=== PATIENT | female | born 1975 | race Caucasian/White ===

== ENCOUNTER 2019-09-30 11:57 | Outpatient (CLI) | payer OTHER, SELFPAY ==
--- NOTE | ~2019-09-30 | MMUS_ITS ---
EXAMINATION: MM diagnostic mammo BI, US breast BI limited HISTORY: Bilateral breast asymmetries have grouped left breast calcifications on screening mammogram TECHNIQUE: Additional 3-D tomosynthesis images of the breasts were performed and synthetic 2-D images were generated. Magnification views of the left breast are also obtained. CAD analysis was submitted and interpreted. High resolution limited bilateral breast ultrasound was performed. COMPARISON: 09/04/2019 FINDINGS: MAMMOGRAPHIC FINDINGS: Right breast: There is mild focal asymmetry in the middle third of the upper outer quadrant of the br east without associated mass, calcification, or architectural distortion. Left breast: Mild asymmetry persists in the posterior third of the outer breast. An asymmetry is also seen in the posterior third of the upper inner breast approximately 10 cm from the nipple with assoc iated calcifications which appear to be punctate and round in morphology. ULTRASOUND: Right breast: There is no suspicious sonographic finding in the area of the right breast asymmetry. Left breast: There is a 4 mm cyst at the 11:00 location 3 cm from the nipple. No suspicious cystic or solid mass is identified. IMPRESSION: 1. Asymmetry of the upper inner left breast with probably benign calcifications. 2. Recommend 6 month follow-up left diagnostic mammogram and possible ultrasound. BI-RADS category 3, probably benign findings. Reviewed, dictated and finalized at location A. 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 Asymmetry of the upper inner left breast with probably benign calcifications . 2. Recommend 6 month follow-up left diagnostic mammogram and possible ultrasoun d. BI-RADS category 3, probably benign findings.
== END 2019-09-30 11:58 | disposition home or self-care (01) ==
LOC: ANHIMG 11:59
DX: R92.2 Inconclusive mammogram (principal)
CPT/HCPCS: 76642; 77066

== ENCOUNTER → 2020-09-11 10:56 | Outpatient (CLI) | payer OTHER, SELFPAY ==
--- NOTE | ~2020-09-11 | US_ITS ---
EXAMINATION: US thyroid DATE: 09/11/2020 11:21 INDICATION: Goiter. TECHNIQUE: Multiple ultrasound images of the thyroid were obtained. COMPARISON: None. FINDINGS: The right thyroid lobe measures 4.9 x 2.0 x 1.6 cm. The left thyroid lobe measures 4.6 x 1.7 x 1.7 c m. The thyroid is diffusely heterogeneous and hypoechoic with increased vascularity. No discrete nod ule. IMPRESSION: 1. Heterogeneous, hypervascular thyroid, consistent with chronic lymphocytic (Don) thyroiditis. Reviewed, dictated and finalized at location A. DER TIER IMPRESSION: 1. Heterogeneous, hypervascular thyroid, consistent with chronic lymphocytic (H ashimoto) thyroiditis.
== END ==
PROVIDERS: Visit Provider Nurse Practitioner Family
DX: E04.9 Nontoxic goiter, unspecified (principal)
CPT/HCPCS: 76536

== ENCOUNTER → 2020-09-11 11:00 | Outpatient (CLI) | payer OTHER, SELFPAY ==
--- NOTE | ~2020-09-11 | XR_ITS ---
EXAMINATION: XR hand LT min 3V DATE: 09/11/2020 12:13 INDICATION: Painful hard bump at the distal left third finger. TECHNIQUE: Posteroanterior, oblique and lateral views of the left hand were obtained. COMPARISON: None. FINDINGS: Alignment is normal. No fracture. Joint spaces are normal. Soft tissues are unremarkable. No masses i dentified. No radiopaque foreign bodies or calcified matrix. IMPRESSION: 1. Negative left hand radiographs. Reviewed, dictated and finalized at location B. R TESTING SUPERVISOR
== END ==
PROVIDERS: Visit Provider Nurse Practitioner
DX: R22.9 Localized swelling, mass and lump, unspecified (principal)
CPT/HCPCS: 73130

== ENCOUNTER 2020-12-28 22:24 | Emergency (ER) | payer OTHER, SELFPAY ==
--- NOTE | ~2020-12-28 | XR_ITS ---
EXAMINATION: XR chest 2V DATE: 12/28/2020 23:03 INDICATION: Chest pain TECHNIQUE: PA and lateral views of the chest are obtained. COMPARISON: 09/06/2017 FINDINGS: The lungs are free of acute opacities. There is no pleural effusion or pneumothorax. The ca rdiomediastinal silhouette is normal. There is mild thoracic spondylosis. IMPRESSION: 1. No acute cardiopulmonary abnormality. Reviewed, dictated and finalized at location A.
[2020-12-28 22:34] VITALS: BP 133/71; PULSE 81; RESP 18; TEMP 36.2; O2SAT 100
--- NOTE | 2020-12-28 22:40 | ECG_ITS ---
Measurements Intervals [place] Rate: 61 P: 60 WV: 131 QRS: 52 QRSD: 88 T: 48 QT: 418 QTc: 423 Interpretive Statements SINUS RHYTHM NORMAL ECG Electronically Signed On 12-29-2020 6:37:41 CDT by Eamon Fulton D.O.
[2020-12-28 23:07] LABS: Basophils Absolute Auto 0.1 K/mm3 (0.0-0.1); Basophils Percent Auto 0.6 % (0.2-1.2); Eosinophils Absolute Auto 0.1 K/mm3 (0-0.3); Eosinophils Percent Auto 1.4 % (0-4.4); Hematocrit 42.4 % (37.0-47.0); Hemoglobin 13.9 g/dL (12.0-15.0); Immature Granulocyte Absolute 0.02 K/mm3 (0.00-0.031); Immature Granulocyte Percent A 0.2 % (0-0.5); Lymphocytes Absolute Auto 3.06 K/mm3 (0.9-3.2); Lymphocytes Percent Auto 34.6 % (18.3-44.2); Mean Corpuscular HGB Conc 32.8 g/dl (32-36); Mean Corpuscular Hemoglobin 30.2 pg (26-34); Mean Corpuscular Volume 92.2 fl (80-100); Mean Platelet Volume 10.9 fl (7.4-10.4); Monocytes Absolute Auto 0.7 K/mm3 (0.1-0.6); Monocytes Percent Auto 7.7 % (2.6-8.5); Neutrophils Absolute Auto 4.9 K/mm3 (1.3-6.7); Neutrophils Percent Auto 55.5 % (45.5-73.1); Platelet Count Result 250 k/mm3 (150-375); Red Cell Distribution Width 12.6 % (11.5-14.5); White Blood Count 8.9 K/mm3 (4.5-10.0)
[2020-12-28 23:17] LABS: INR 0.9; Partial Thromboplastin Time 23.3 SECONDS (22.3-36.8); Prothrombin Time 12.8 Seconds (11.1-14.7)
[2020-12-28 23:20] LABS: Anion Gap 6 mmol/L (8-16); Blood Urea Nitrogen 22 mg/dL (7-17); Calcium 9.7 mg/dL (8.4-10.2); Carbon Dioxide 29 mmol/L (22-30); Chloride 104 mmol/L (98-107); Estimated CRCL calculation 85 ml/min; Estimated Glomerular Filt Rate > 60; Glucose 102 mg/dL (65-105); Potassium 3.8 mmol/L (3.4-5.0); Sodium 139 mmol/L (137-145)
[2020-12-28 23:32] LABS: Troponin I < 0.012 ng/mL (0.000-0.034)
[2020-12-28 23:57] VITALS: BP 141/66; PULSE 54; RESP 18; O2SAT 97
[2020-12-29] MEDS: ASPIRIN 81 MG CHEWABLE TABLET 324 MG PO (00:05)
--- NOTE | 2020-12-29 02:29 | ED.GENADULT ---
HPI - General Adult General Chief complaint: Chest Pain Stated complaint: palpitations, tingly face Time Seen by Provider: 12/29/20 00:15 History of Present Illness HPI narrative: Patient is a 45-year-old female who presents emerged from with chief complaint palpitations and chest discomfort. The patient states she been having this for some time is [employer] and is supposed to see cardiology later this week. Patient states tonight she felt as though her heart was beating funny and decided to come to the emergency department for evaluation. Patient reports she does have history of hypothyroidism and is currently on Synthroid. Patient reports that she has intermittent episodes of chest discomfort that lasts for a few seconds. Related Data Home Medications Medication Instructions Recorded Confirmed fluticasone furoate 50 INHALATION 08/27/20 12/15/20 mcg/actuation blister powder for inhalation levocetirizine 5 mg tablet 5 mg PO DAILY 08/27/20 12/15/20 levothyroxine 50 mcg capsule 50 mcg PO DAILY 08/27/20 12/15/20 montelukast 10 mg tablet 10 mg PO DAILY 08/27/20 12/15/20 Allergies Allergy/AdvReac Type Severity Reaction Status Date / Time penicillin G Allergy Unknown Rash Verified 12/15/20 10:57 Penicillins Allergy Unknown RASH Verified 12/15/20 10:57 Sulfa (Sulfonamide Allergy Unknown Rash Verified 12/15/20 10:57 Antibiotics) Review of Systems Review of Systems: Narrative: A 10 system review of systems was completed on the patient and is negative except for what is stated in the HPI. Nursing and ancillary documentation was reviewed. [facility] Past Medical History Medical History Mucoid cyst of joint Seasonal allergic rhinitis Thyroid disease Social History Social History Smoking status: Former smoker Alcohol intake: current Exam Narrative: Exam Narrative: GENERAL: Well-appearing, well-nourished, and in no acute distress. HEAD: Normocephalic, atraumatic. EYES: PERRLA and EOMI. ENT: Nares clear, no rhinorrhea or epistaxis. Mucous membranes moist. NECK: Supple. CHEST: Clear to auscultation. No respiratory distress. HEART: Regular rate and rhythm. No murmur heard. Normal peripheral pulses. ABDOMEN: Soft, nontender, nondistended, normal active bowel sounds. EXTREMITIES: Normal range of motion. No edema. SKIN: Warm, dry, no rash. NEURO: No focal deficits. Alert and oriented x3. PSYCH: Normal mood and affect. Course Vital Signs Vital signs: Vital Signs Temperature 36.2 C L 12/28/20 22:34 Pulse Rate 81 12/28/20 22:34 Respiratory Rate 18 12/28/20 22:34 Blood Pressure 133/71 12/28/20 22:34 Pulse Oximetry 100 12/28/20 22:34 Temperature 36.2 C L 12/28/20 22:34 Pulse Rate 54 L 12/28/20 23:57 Respiratory Rate 18 12/28/20 23:57 Blood Pressure 141/66 H 12/28/20 23:57 Pulse Oximetry 97 12/28/20 23:57 Medical Decision Making Vital Signs Vital Signs: Vital Signs Temperature 36.2 C L 12/28/20 22:34 Pulse Rate 81 12/28/20 22:34 Respiratory Rate 18 12/28/20 22:34 Blood Pressure 133/71 12/28/20 22:34 Pulse Oximetry 100 12/28/20 22:34 Temperature 36.2 C L 12/28/20 22:34 Pulse Rate 54 L 12/28/20 23:57 Respiratory Rate 18 12/28/20 23:57 Blood Pressure 141/66 H 12/28/20 23:57 Pulse Oximetry 97 12/28/20 23:57 Lab Data Result diagrams: 12/28/20 22:55 12/28/20 22:55 Labs: Lab Results 12/28/20 12/28/20 12/28/20 Range/Units 22:55 22:55 22:55 WBC 8.9 (4.5-10.0) K/mm3 RBC 4.60 (4.2-5.4) M/mm3 Hgb 13.9 (12.0-15.0) g/dL Hct 42.4 (37.0-47.0) % MCV 92.2 (80-100) fl MCH 30.2 (26-34) pg MCHC 32.8 (32-36) g/dl RDW 12.6 (11.5-14.5) % Plt Count 250 (150-375) k/mm3 MPV 10.9 H (7.4-10.4) fl Immature Gran % (Auto) 0.2 (0-0.5)
[2020-12-29 03:01] LABS: Troponin I < 0.012 ng/mL (0.000-0.034)
[2020-12-29 03:27] VITALS: BP 135/67; PULSE 70; RESP 18; O2SAT 98
== END 2020-12-29 03:28 | disposition home or self-care (01) ==
PROVIDERS: Emergency Provider Emergency Medicine; PCP Family Medicine
DX: R00.2 Palpitations (principal); R07.89 Other chest pain; Z87.891 Personal history of nicotine dependence; E03.9 Hypothyroidism, unspecified
CPT/HCPCS: 36415; 71046; 80048; 84484; 85025; 85610; 85730; 93005; 99284; A9270

== ENCOUNTER → 2021-01-25 02:03 | Outpatient (CLI) | payer OTHER, SELFPAY ==
[2021-01-25 17:43] LABS: SARS-CoV-2 RNA PCR Negative
== END ==
PROVIDERS: Visit Provider Orthopaedic Surgery
DX: Z01.812 Encounter for preprocedural laboratory examination (principal); Z20.822 Contact with and (suspected) exposure to COVID-19
CPT/HCPCS: C9803; U0003; U0005

== ENCOUNTER 2021-01-28 00:19 | Day surgery (SDC) | payer OTHER, SELFPAY ==
[2021-01-25 09:47] VITALS: BMI 31.1
--- NOTE | 2021-01-27 10:03 | WPDANESEPPF ---
Anes - Initial Pre Proc Eval Procedure: Operation Date: 01/28/21 07:30 Proposed Procedures p Excision Left Middle Finger Ganglion Cyst - Bobby Bradley MD Date/Time: 01/27/21 10:03 Surgeon: Bobby Bradley MD Pre Op Diagnosis: left middle finger ganglion cyst Patient Data Age: 45 Gender: F Height: 1.65 m Weight: 84.82 kg Allergies Allergy/AdvReac Type Severity Reaction Status Date / Time penicillin G Allergy Unknown Rash Verified 01/25/21 13:07 Penicillins Allergy Unknown RASH Verified 01/25/21 13:07 Sulfa (Sulfonamide Allergy Unknown Rash Verified 01/25/21 13:07 Antibiotics) levothyroxine sodium AdvReac Palpitation Verified 01/25/21 13:07 [From Synthroid] s Home Medications Medication Instructions Recorded Confirmed Type levocetirizine 5 mg tablet 5 mg PO DAILY 08/27/20 01/25/21 History montelukast 10 mg tablet 10 mg PO DAILY 08/27/20 01/25/21 History cholecalciferol (vitamin D3) 125 mcg PO 2XW 01/25/21 01/25/21 History [Vitamin D3] fluticasone propionate [Flonase 2 spray INTRANASAL DAILY 01/25/21 01/25/21 History Allergy Relief] multivitamin 1 tablet PO DAILY 01/25/21 01/25/21 History Patient hx anesthesia problems: none Family hx anesthesia problems: none [facility] Past Medical History Medical History (Updated 01/27/21 @ 16:53 by Bobby Bradley MD) Digital mucous cyst of finger of left hand DVT (deep venous thrombosis) Mucoid cyst of joint Obesity Seasonal allergic rhinitis Thyroid disease Social History Social History Smoking packs per day: 1 Smoking cigarettes per day: 20.0 Years smoked: 10 Smoking pack-years: 10.00 Smoking status: Former smoker Smoking end date: 08/14/04 Alcohol intake: current Substance use: never Substance use type: does not use Living arrangements: with family Spiritual care concerns: No Anes - Eval Final PreProcedure Day of Procedure 01/27/21 10:03 Patient weight: obese Heart: regular rate and rhythm Lungs: clear to auscultation and normal air movement Airway: Mallampati scale class II Neurological: alert and oriented Last oral intake: >/= 8 hours ASA classification: II Emergent: no Anesthetic plan: proceed Anesthesia type and monitoring: general GIVS and LMA Informed Consent: The patient's anesthetic plan and its attendant risks and benefits were discussed with the patient/family/POA. Questions were solicited and answers provided to the satisfaction of the patient/family/POA.
--- NOTE | 2021-01-27 16:49 | PM.IMHP ---
H&P: HPI History of Present Illness Date/Time: 01/27/21 16:49 Chief Complaint: Left hand middle finger cyst Narrative: 45-year-old woman with left hand middle finger cyst unrelieved with conservative measures. Causes pain and problems with gripping. Presents for operative treatment. Review of Systems Constitutional: Constitutional: Denies fever(s) Eyes: Eyes: Denies blurry vision ENT: Reports Normal hearing present Cardiovascular: Cardiovascular: Denies chest pain and Denies dyspnea Respiratory: Respiratory: Denies dyspnea and Denies wheezing Gastrointestinal: Gastrointestinal: Denies abdominal pain Genitourinary: Genitourinary: Denies urinary urgency Musculoskeletal: Musculoskeletal: Reports as per HPI and Denies numbness Integumentary/Breasts: Skin/Breast: Denies changing lesions and Denies sores Neurologic: Reports Normal hearing present, Denies behavioral changes, Denies confusion, Denies numbness and Denies convulsions Psychiatric: Psychiatric: Denies behavioral changes, Denies confusion and Denies hallucinations Endocrine: Endocrine: Denies heat intolerance Hematologic/Lymphatic: Hematologic/Lymphatic: Denies easy bleeding Allergic/Immunologic: Allergic/Immunologic: Denies wheezing PMFSH Past Medical History Medical History (Updated 01/27/21 @ 16:53 by Bobby Bradley MD) Digital mucous cyst of finger of left hand DVT (deep venous thrombosis) Mucoid cyst of joint Obesity Seasonal allergic rhinitis Thyroid disease Social History Social History Smoking packs per day: 1 Smoking cigarettes per day: 20.0 Years smoked: 10 Smoking pack-years: 10.00 Smoking status: Former smoker Smoking end date: 08/14/04 Alcohol intake: never Substance use: never Substance use type: does not use Spiritual care concerns: No Meds Home Medications and Allergies Home Medications Medication Instructions Recorded Confirmed Type levocetirizine 5 mg tablet 5 mg PO DAILY 08/27/20 01/25/21 History montelukast 10 mg tablet 10 mg PO DAILY 08/27/20 01/25/21 History cholecalciferol (vitamin D3) 125 mcg PO 2XW 01/25/21 01/25/21 History [Vitamin D3] fluticasone propionate [Flonase 2 spray INTRANASAL DAILY 01/25/21 01/25/21 History Allergy Relief] multivitamin 1 tablet PO DAILY 01/25/21 01/25/21 History Allergies Allergy/AdvReac Type Severity Reaction Status Date / Time penicillin G Allergy Unknown Rash Verified 01/25/21 13:07 Penicillins Allergy Unknown RASH Verified 01/25/21 13:07 Sulfa (Sulfonamide Allergy Unknown Rash Verified 01/25/21 13:07 Antibiotics) levothyroxine sodium AdvReac Palpitation Verified 01/25/21 13:07 [From Synthroid] s Exam Const: General: healthy appearing; No in distress or confusion Orientation/consciousness: oriented to person, oriented to place, oriented to time and No confusion HENMT: Head: normal to inspection, normocephalic and atraumatic Eyes: Conjunctivae: conjunctivae normal Sclera: sclerae normal Neck: Neck: supple and nontender Resp: Effort & Inspection: normal respiratory effort and no audible wheezes Cardio: Rate: regular rate Rhythm: regular rhythm Skin: General skin exam: no rashes or lesions noted Neuro: General: oriented to person, oriented to place, oriented to time and No confusion Extrem: Right upper extremity: normal to inspection Left upper extremity: shoulder/upper arm no tenderness and no swelling, elbow/forearm no tenderness and no swelling, wrist tenderness ( First dorsal compartment) of the distal radius, swelling of the dorsal wrist (moderate), abnormal ROM (decreased secondary to injury) pain with active ROM with extension and with flexion and pain with passive ROM in extension and in flexion and radial pulse present 2+ and hand normal capillary refill, neuromotor exam normal, neurosensory exam normal Details: radial nerve sensory function normal, ulnar
[2021-01-28] MEDS: ACETAMINOPHEN 500 MG TABLET 1000 MG PO (06:40)
[2021-01-28] MEDS: LACTATED RINGERS 1,000 ML 30 ML IV CONT (06:48)
[2021-01-28 06:50] VITALS: BP 95/54; PULSE 69; TEMP 36.1; O2SAT 100
[2021-01-28] MEDS: KETOROLAC 15 MG/ML VIAL (*BKC) IV PUSH (06:59)
--- NOTE | 2021-01-28 07:00 | WPDHPUPDATE1 ---
History and Physical Update Update Date/Time: 01/28/21 07:00 History and Physical has been reviewed, including an updated exam of the patient. There are NO changes in the patient's condition. Covid test negative. Risks, benefits, and alternatives have been discussed and questions answered. Patient agrees to proceed with procedure.
[2021-01-28] MEDS: ceFAZolin 2 GM/D5W 50 ML 2 GM/50 ML BAG IVPB (07:20)
[2021-01-28] MEDS: BUPIVACAINE HCL 0.5% PF 30 ML VIAL INFILTRATE (07:47)
--- NOTE | 2021-01-28 08:08 | W.PM.PROC2 ---
Procedure Note - Detailed Date of Procedure 01/28/21 Pre-op Diagnosis left middle finger ganglion cyst Post-op Diagnosis same Procedure Performed Excision mucous cyst left middle finger Surgeon Bobby Bradley MD Anesthesia MAC and local Indications 45-year-old woman with a cyst involving the distal interphalangeal joint of the left middle finger. Unrelieved with conservative measures. Presents now for excision. Description of Procedure What was done: Patient identified in the preoperative holding. Informed consent given. Operative extremity marked. Patient received intravenous antibiotics. Patient brought to the operating room where underwent sedation by anesthesia team. Positioned supine on operating room table. Time-out performed confirming the patient, site of the surgery and the plan. Left hand prepped draped usual sterile surgical fashion using a ChloraPrep skin solution. 0.5% Marcaine plain used for local anesthetic at the middle finger base. Fifteen blade knife used to make a longitudinal incision over the dorsal radial aspect of the middle finger DIP joint. Hemostasis controlled electrocautery. Care taken to isolate the extensor tendon which was retracted. Neurovascular structures were also protected. Care was also taken not to violate the nail fold or germinal matrix. Distal interphalangeal joint was exposed at the dorsal radial aspect. Small bone spur was present. This was removed with a rongeur. The cyst sac was then identified and closed with cautery. Bleeding points were controlled with bipolar cautery. Wound thoroughly irrigated with solution. Soft tissues closed with 4 nylon interrupted suture. Sterile dressing applied. The patient was then woken from anesthesia, extubated and taken to the recovery room in stable condition. All sponge, needle, instrument counts were correct at the end of the case. Implants None Estimated Blood Loss 0 Tourniquet Time 10 Drains No Packing No Pathology none sent Complications None Condition stable Disposition PACU
[2021-01-28 08:10] VITALS: BP 95/48; PULSE 81; RESP 16; O2SAT 95
[2021-01-28 08:40] VITALS: BP 103/60; PULSE 64; RESP 16; O2SAT 96
[2021-01-28 09:00] VITALS: BP 118/72; PULSE 49; RESP 16
== END 2021-01-28 09:11 | disposition home or self-care (01) ==
PROVIDERS: Visit Provider Orthopaedic Surgery
PROC: (CPT 26160; principal; 2021-01-28 07:30)
DX: M67.442 Ganglion, left hand (principal); E66.9 Obesity, unspecified; Z68.31 Body mass index [BMI] 31.0-31.9, adult; Z87.891 Personal history of nicotine dependence
CPT/HCPCS: 26160; A9270; C9803; J0690; J1885; J2250; J2704; J3010; J7120; U0003; U0005

== ENCOUNTER 2021-03-02 08:01 | Outpatient (CLI) | payer OTHER, SELFPAY | END 2021-03-02 08:02 | disposition home or self-care (01) | PROVIDERS: Visit Provider Otolaryngology | DX: H93.19 Tinnitus, unspecified ear (principal) | CPT/HCPCS: 92557; 92567 ==

== ENCOUNTER 2021-10-15 08:32 | Outpatient (CLI) | payer OTHER, SELFPAY ==
--- NOTE | ~2021-10-15 | MM_ITS ---
EXAMINATION: MM screening [facility] BI w [place] HISTORY: Screening mammogram TECHNIQUE: Craniocaudal and mediolateral oblique 3-D tomosynthesis images were obtained and synthetic 2-D images were generated. CAD analysis was submitted and interpreted. COMPARISON: 09/30/2019, 09/04/2019 BREAST PARENCHYMAL COMPOSITION: The breasts are heterogeneously dense, which may obscure small masses . FINDINGS: There is an asymmetry in the posterior third of the upper outer left breast with associated punctate calcifications. No suspicious interval change is identified in the greater than two year in terval since the diagnostic examination. There is no evidence of suspicious mass, calcification, or a rchitectural distortion to suggest malignancy in either breast. IMPRESSION: 1. No mammographic evidence of malignancy. 2. Recommend routine screening mammography in one year. BI-RADS Category 2: Benign finding(s). Reviewed, dictated and finalized at location A. 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
== END 2021-10-15 08:33 | disposition home or self-care (01) ==
LOC: ANHIMG 08:35
DX: Z12.31 Encounter for screening mammogram for malignant neoplasm of breast (principal)
CPT/HCPCS: 77063; 77067

== ENCOUNTER 2021-11-22 16:05 | Outpatient (CLI) | payer OTHER, SELFPAY ==
--- NOTE | ~2021-11-22 | XR_ITS ---
EXAMINATION: XR chest 2V Exam Date/Time: 11/22/2021 16:14 CDT CLINICAL HISTORY: Nonspecific reaction to cell mediated immunity measurement o Comparison: 12/28/2020. RESULT: Lines, tubes, and devices: None. Lungs and pleura: Clear. Cardiomediastinal silhouette: Stable cardiomediastinal silhouette. Other: No acute osseous or upper abdominal finding. IMPRESSION: No acute cardiopulmonary process. Reviewed, dictated and finalized at location K.
== END 2021-11-22 16:06 | disposition home or self-care (01) ==
LOC: ANHIMG 16:07
PROVIDERS: Visit Provider Pediatrics
DX: R76.12 Nonspecific reaction to cell mediated immunity measurement of gamma interferon antigen response without active tuberculosis (principal)
CPT/HCPCS: 71046

== ENCOUNTER 2022-12-02 15:27 | Outpatient (CLI) | payer OTHER, SELFPAY ==
--- NOTE | ~2022-12-02 | MM_ITS ---
EXAMINATION: MM screening [facility] BI w [place]inda HISTORY: Screening mammogram TECHNIQUE: Craniocaudal and mediolateral oblique 3-D tomosynthesis images were obtained and synthetic 2-D images were generated. CAD analysis was submitted and interpreted. COMPARISON: 10/15/2021, 09/30/2019, 09/04/2019 BREAST PARENCHYMAL COMPOSITION: The breasts are heterogeneously dense, which may obscure small masses . FINDINGS: RIGHT BREAST: No suspicious mass, calcification, or architectural distortion are identified to sugges t malignancy. There has been no suspicious interval change. LEFT BREAST: Calcifications are present in the posterior third of the upper inner quadrant of the cheryl ast. IMPRESSION: 1. Left breast calcifications. 2. Magnification views are recommended. BI-RADS Category 0: Incomplete: Needs additional imaging evaluation. Reviewed, dictated and finalized at location A.
== END 2022-12-02 15:28 | disposition home or self-care (01) ==
DX: Z12.31 Encounter for screening mammogram for malignant neoplasm of breast (principal); R92.8 Other abnormal and inconclusive findings on diagnostic imaging of breast
CPT/HCPCS: 77063; 77067

== ENCOUNTER 2023-04-26 12:16 | Outpatient (CLI) | payer OTHER, SELFPAY ==
--- NOTE | ~2023-04-26 | MMUS_ITS ---
EXAMINATION: MM diagnostic mammo unilat LT, US breast LT limited HISTORY: Microcalcifications in posterior third of upper inner quadrant of left breast on 12/02/2022 s creening mammogram TECHNIQUE: Additional ML 3-D tomosynthesis images of were performed and synthetic 2-D images were gen erated. Magnification views of the left breast. CAD analysis was submitted and interpreted. High reso lution upper inner quadrant left breast ultrasound was performed. COMPARISON: Serial mammogram and ultrasound examinations dating back to 09/04/2019 BREAST PARENCHYMAL COMPOSITION: The breasts are heterogeneously dense, which may obscure small masses . FINDINGS: MAMMOGRAPHIC FINDINGS: Multiple indeterminate microcalcifications are noted in a linear distribution in the posterior upper inner left breast. These are largely punctate are granular in appearance without linear or branching configuration. ULTRASOUND: No suspicious focal mass or shadowing is detected. IMPRESSION: 1. Indeterminate linear array of or annular punctate microcalcifications in the posterior upper inner quadrant. 2. Stereotactic biopsy of life assurance representative sampling of the posterior upper inner quadrant microcalcific ations is recommended BI-RADS category 4, suspicious findings. Dr. Lenz telephoned the report and*detected biopsy recommendation of posterior upper inner quadrant l eft breast microcalcifications on 04/26/2023 at 1400 hours to Retail Sales Lead Meme. Reviewed, dictated and finalized at location A. IMPRESSION: 1. Indeterminate linear array of or annular punctate microcalcifications in the posterior upper inner quadrant. 2. Stereotactic biopsy of life assurance representative sampling of the posterior upper inner quadrant microcalcifications is recommended BI-RADS category 4, suspicious findings. Dr. Lenz telephoned the report and*detected biopsy recommendation of posterior upper inner quadrant left breast microcalcifications on 04/26/2023 at 1400 hours to Retail Sales Lead Meme.
== END 2023-04-26 12:17 | disposition home or self-care (01) ==
LOC: ANHIMG 12:21
PROVIDERS: Visit Provider Family Medicine Sports Medicine
DX: R92.8 Other abnormal and inconclusive findings on diagnostic imaging of breast (principal)
CPT/HCPCS: 76642; 77065